=== PATIENT | male | born 1970 | race Caucasian/White ===

== ENCOUNTER → 2018-03-04 | Outpatient (CLI) | payer OTHER ==
[~2018-03-04] MED LIST: GADOBUTROL 7.5 MMOL/7.5 ML VIAL INT ART ONE; IOHEXOL 300 MG/ML 50 ML VIAL. INT ART ONE; LIDOCAINE 1% Multi-Dose 20 ML VIAL. ID ONE
--- NOTE | 2018-03-04 16:28 | KCIC ---
MR arthrogram of the right shoulder Indication: Pain. Technique: Intra-articular contrast injected into the glenohumeral joint and is reported separately. Routine 4 plane sequences were obtained, including ABER positioning. FINDINGS: Artifact: No significant image degradation. Acromioclavicular joint: Mildly degenerative with undersurface mass effect. Rotator cuff: * Supraspinatus-infraspinatus tendon: Intact * Subscapularis tendon: Intact * Muscle bulk: Within normal limits * Subacromial subdeltoid bursa:No significant fluid or contrast accumulation. Articular cartilage: Mild chondromalacia. Labrum: Tear of the superior, posterior, inferior and anterior labrum. Small anteroinferior para labral cyst measures 2 cm. Biceps tendon: Intact Bones: No lesion or acute fracture. Soft tissue: No acute findings. Impression: 1. Circumferential labral tear. Small anteroinferior para labral cyst. 2. No rotator cuff tear. 3. Primary osteoarthritis. Electronically signed by: Nomi Escobar MD (03/04/2018 4:25 PM) [id number]
--- NOTE | 2018-03-04 16:37 | KCIC ---
MR arthrogram of the left shoulder Indication: Left shoulder pain for 7 years. Technique: Intra-articular contrast injected into the glenohumeral joint and is reported separately. Routine 4 plane sequences were obtained, including ABER positioning. FINDINGS: Artifact: No significant image degradation Acromioclavicular joint: Degenerative with mild undersurface hypertrophy and mass effect Rotator cuff: * Supraspinatus-infraspinatus tendon: Intact * Subscapularis tendon: Intact * Muscle bulk: Within normal limits * Subacromial subdeltoid bursa: No significant fluid or contrast accumulation. Articular cartilage: Moderate chondromalacia Labrum: Tear of the superior labrum through posterior labrum. Tear of the anteroinferior labrum. Biceps tendon: Intact Bones: Small cyst at the humeral head. No aggressive bone destruction or acute fracture. Soft tissue: Small hypointense nodular structure within the biceps tendon sheath, below the bicipital groove. This could represent a small synovial nodule, versus a small loose body. Measures 2 mm. Impression: 1. Posterosuperior labral tear. 2. Anteroinferior labral tear. 3. Primary osteoarthritis. 4. Small nodular structure within the biceps tendon sheath, possible loose body. Electronically signed by: Nomi Escobar MD (03/04/2018 4:34 PM) [id number]
--- NOTE | 2018-03-04 16:53 | KCIC ---
PROCEDURE: Right shoulder injection using fluoroscopic guidance, prior to MR. HISTORY: Shoulder pain. Chronic pain. TECHNIQUE: The procedure was explained to the patient as were potential risks, including among others infection, bleeding or allergic reaction. All questions were answered. Informed written and verbal consent was obtained. The shoulder was prepped and draped in the usual sterile manner. Following administration of local anesthetic, a 22-gauge needle was advanced into the anterior shoulder. Following negative aspiration, 12 cc of a solution of 5cc Omnipaque-300 contrast, 5 cc 1% lidocaine, 10 cc normal saline, and 0.1 cc gadolinium was injected without difficulty. The needle was removed. There was good hemostasis at the injection site. The patient left in stable condition without immediate complication. A single spot image is obtained. FLUOROSCOPY TIME:?19 seconds Electronically signed by: Nomi Escobar MD (03/04/2018 4:50 PM) [id number]
--- NOTE | 2018-03-04 16:56 | KCIC ---
PROCEDURE: Left shoulder injection using fluoroscopic guidance, prior to MR. HISTORY: Shoulder pain. Pain is chronic. TECHNIQUE: The procedure was explained to the patient as were potential risks, including among others infection, bleeding or allergic reaction. All questions were answered. Informed written and verbal consent was obtained. The shoulder was prepped and draped in the usual sterile manner. Following administration of local anesthetic, a 22-gauge needle was advanced into the anterior shoulder. Following negative aspiration, 12 cc of a solution of 5cc Omnipaque-300 contrast, 5 cc 1% lidocaine, 10 cc normal saline, and 0.1 cc gadolinium was injected without difficulty. The needle was removed. There was good hemostasis at the injection site. The patient left in stable condition without immediate complication. A single spot image is obtained. FLUOROSCOPY TIME:?21 seconds Electronically signed by: Nomi Escobar MD (03/04/2018 4:52 PM) [id number]
== END | disposition home or self-care (01) ==
LOC: KCIC 12:28
DX: S43.492A Other sprain of left shoulder joint, initial encounter (principal); S43.491A Other sprain of right shoulder joint, initial encounter; M19.012 Primary osteoarthritis, left shoulder; M19.011 Primary osteoarthritis, right shoulder; M94.212 Chondromalacia, left shoulder; G89.29 Other chronic pain; X58.XXXA Exposure to other specified factors, initial encounter; Y93.89 Activity, other specified; Y92.89 Other specified places as the place of occurrence of the external cause; Y99.8 Other external cause status
CPT/HCPCS: 73040; 73222; A9585; Q9967

== ENCOUNTER 2021-03-17 06:32 | Day surgery (SDC) | payer OTHER ==
[~2021-03-17] VITALS: Ht 175.3 cm; Wt 118.0 kg
[~2021-03-17 06:32] MED LIST changes: +ACETAMINOPHEN 500 MG TABLET PO PRN; +CYAN-9 PO; +FLUO40CA9 PO; -GADOBUTROL 7.5 MMOL/7.5 ML VIAL INT ART ONE; +HYDROmorphone 2 MG/ML VIAL IVP PRN; -IOHEXOL 300 MG/ML 50 ML VIAL. INT ART ONE; +IV RINGERS,LACTATED 1000ML 1,000 ML IV SCH; -LIDOCAINE 1% Multi-Dose 20 ML VIAL. ID ONE; +MELO15TA6 PO; +MORPHINE SULFATE 2 MG/ML INJ. IVP PRN; +MULT-496 PO; +PREG150C PO; +PROCHLORPERAZINE 10 MG/2 ML VIAL. IVP PRN; +TAMS0.4C97 PO; +TEST200V3 IM; +fentaNYL PF VIAL 100 MCG/2 ML VIAL IVP PRN
[2021-03-17 06:51] VITALS: BP 143/80
[2021-03-17] MEDS ORDERED: BUPIVACAINE-EPI 0.25%-1:200000 MPF 30 ML VIAL. ONE (07:07)
[2021-03-17] MEDS ORDERED: SUCCINYLCHOLINE 200 MG/10 ML VIAL. ONE (07:17)
[2021-03-17] MEDS ORDERED: fentaNYL PF VIAL 250 MCG/5 ML VIAL ONE (07:18)
[2021-03-17] MEDS ORDERED: GLYCOPYRROLATE 1 MG/5 ML VIAL. ONE (07:18)
[2021-03-17] MEDS ORDERED: ROCURONIUM 50 MG/5 ML VIAL. ONE ×2 (07:19→08:14)
[2021-03-17] MEDS ORDERED: NEOSTIGMINE METHYLSULFATE 5 MG/5 ML SYRINGE. ONE (07:19)
[2021-03-17] MEDS ORDERED: MIDAZOLAM HCL/PF 2 MG/2 ML VIAL. ONE (07:19)
--- NOTE | 2021-03-17 07:45 | PDOC1 ---
History and Physical Date of Admission Date of Admission DATE: 03/17/21 TIME: 07:42 Identification/Chief Complaint Chief Complaint Abdominal pain Source Source: Patient History of Present Illness History of Present Illness 50-year-old male with complaints of abdominal pain at his umbilicus he previously had an umbilical hernia repair back in 2011 recently having more pain and a bulge again in this area Past Medical History Cardiovascular: No pertinent hx Pulmonary: No pertinent hx GI: No pertinent hx Heme/Onc: No pertinent hx Hepatobiliary: No pertinent hx Psych: Anxiety Rheumatologic: No pertinent hx Infectious disease: No pertinent hx ENT: No pertinent hx Renal/: No pertinent hx Endocrine: Diabetes Dermatology: No pertinent hx Past Surgical History Past Surgical History: Other (Umbilical hernia repair ankle fusion and excisions of multiple lipomas) Family History Family History: No Significant Social History Smoke: No ALCOHOL: none Drugs: None Current Medications Current Medications Current Medications Fentanyl Citrate (Fentanyl 2ml Vial) 25 mcg PRN Q5MIN PRN IVP MILD PAIN 1-3; Start 03/17/21 at 06:00; Stop 03/18/21 at 05:59 Fentanyl Citrate (Fentanyl 2ml Vial) 50 mcg PRN Q5MIN PRN IVP MODERATE PAIN 4- 6; Start 03/17/21 at 06:00; Stop 03/18/21 at 05:59 Morphine Sulfate (Morphine Sulfate) 1 mg PRN Q10MIN PRN IVP SEVERE PAIN 7-10; Start 03/17/21 at 06:00; Stop 03/18/21 at 05:59 Ringer's Solution 1,000 ml @ 30 mls/hr Q24H IV Last administered on 03/17/21at 07:09; Start 03/17/21 at 06:00; Stop 03/17/21 at 17:59 Hydromorphone HCl (Dilaudid) 0.5 mg PRN Q10MIN PRN IVP SEVERE PAIN 7-10, 2nd CHOICE; Start 03/17/21 at 06:00; Stop 03/18/21 at 05:59 Prochlorperazine Edisylate (Compazine) 5 mg PACU PRN PRN IVP NAUSEA, MRX1; Start 03/17/21 at 06:00; Stop 03/18/21 at 05:59 Acetaminophen (Tylenol) 1,000 mg 1X PREOP PRN PO PRIOR TO PROCEDURE Last administered on 03/17/21at 07:11; Start 03/17/21 at 06:00 Cefazolin Sodium/ Dextrose 50 ml @ 100 mls/hr 1X PREOP PRN IV PRIOR TO PROCEDURE; Start 03/17/21 at 06:00; Stop 03/17/21 at 18:00 Bupivacaine HCl/ Epinephrine Bitart (Sensorcaine-Epi 0.25%-1:627678 Mpf) 30 ml STK-MED ONCE .ROUTE ; Start 03/17/21 at 07:07; Stop 03/17/21 at 07:08; Status DC Succinylcholine Chloride (Anectine) 200 mg STK-MED ONCE .ROUTE ; Start 03/17/21 at 07:17; Stop 03/17/21 at 07:18; Status DC Glycopyrrolate (Robinul) 1 mg STK-MED ONCE .ROUTE ; Start 03/17/21 at 07:18; Stop 03/17/21 at 07:18; Status DC Fentanyl Citrate (Fentanyl 5ml Vial) 250 mcg STK-MED ONCE .ROUTE ; Start 03/17/21 at 07:18; Stop 03/17/21 at 07:19; Status DC Neostigmine [place] (Neostigmine Methylsulfate) 5 mg STK-MED ONCE .ROUTE ; Start 03/17/21 at 07:19; Stop 03/17/21 at 07:19; Status DC Rocuronium [place] (Zemuron) 50 mg STK-MED ONCE .ROUTE ; Start 03/17/21 at 07:19; Stop 03/17/21 at 07:20; Status DC Midazolam HCl (Versed) 2 mg STK-MED ONCE .ROUTE ; Start 03/17/21 at 07:19; Stop 03/17/21 at 07:20; Status DC Active Scripts Active Reported Vitamin B-12 (Cyanocobalamin (Vitamin B-12)) 1,000 Mcg Capsule 1,000 Mcg PO DAILY Daily Value (Multivitamin) 1 Each Tablet 1 Each PO DAILY Testosterone Cypionate 200 Mg/1 Ml Vial 200 Mg IM Q2WKS Flomax (Tamsulosin Hcl) 0.4 Mg Cap.er.24h 0.4 Mg PO DAILY Mobic (Meloxicam) 15 Mg Tablet 15 Mg PO DAILY Lyrica (Pregabalin) 150 Mg Capsule 150 Mg PO DAILY 30 Days Prozac (Fluoxetine Hcl) 40 Mg Capsule 60 Mg PO DAILY Allergies Allergies: Coded Allergies: No Known Drug Allergies (Unverified , 03/17/21) ROS Gastrointestinal: Yes Abdominal Pain Physical Exam General: Alert, Oriented X3, Cooperative, No acute distress HEENT: Atraumatic, EOMI Lungs: Clear to auscultation, Normal air movement Heart: RRR, no murmurs Abdomen: Normal bowel sounds, Soft, Other (Tender to palpation at the umbilicus with reducible bulge at the umbilicus) Rectal Exam: not examined Extremities: No edema Skin: No significant lesion Neuro: Normal speech Vitals Vitals Vital Signs Date Time Temp Pulse Resp B/P (MAP) Pulse Ox O2 Delivery O2 Flow Rate FiO2 03/17/21 06:55 97.4 95 18 143/80 97 Room Air 97.4 VTE Prophylaxis Ordered VTE Prophylaxis Devices: Yes VTE Pharmacological Prophylaxi: Contraindicated Assessment/Plan Assessment/Plan Recurrent incisional ventral hernia plan robotic repair with mesh Justifications for Admission Other Justification CRISTIAN YOUNG MD Mar 17, 2021 07:45
[2021-03-17] MEDS ORDERED: PROPOFOL 10 MG/ML (20ML) VIAL. IV ONE (08:36)
[2021-03-17] MEDS ORDERED: LIDOCAINE 2% PF 5 ML VIAL. ONE (08:36)
[2021-03-17] MEDS ORDERED: DEXAMETHASONE SOD PHOS 4 MG/ML VIAL ONE (08:37)
[2021-03-17] MEDS ORDERED: ONDANSETRON PF 4 MG/2 ML VIAL. ONE (08:37)
--- NOTE | 2021-03-17 08:37 | PDOC4 ---
Operative Note Operative Note Date: March 172020 at 834 Preoperative diagnosis: Abdominal pain possible incisional hernia Postoperative diagnosis: Adhesions to previous hernia repair Procedure: Robotic assisted laparoscopic lysis of adhesions Surgeon: Campos Specimen: None Dictation: Patient is a 50-year-old male who is having abdominal pain at a previous incision site for an umbilical hernia repair. He is concerned for recurrence of his hernia and he does have a bulge at his umbilicus. The procedure of robotic assisted laparoscopic ventral hernia repair with mesh was explained to the patient detail risk benefits were also discussed including bleeding infection injury to intra-abdominal contents possible necessitating further open operations alternatives to this procedure also discussed with the patient who seemed to understand and gave both verbal and written consent to have the procedure performed. Patient was taken to the operating room placed in supine position general anesthesia was initiated once patient was sleeping intubated his abdomen was prepped and draped usual sterile fashion using ChloraPrep. An area in the left upper quadrant was injected with quarter percent Marcaine with epinephrine incision was made 11 blade scalpel and 5 mm Visiport was placed under direct visualization the abdomen creating pneumoperitoneum once this was complete 8 mm ventral port was placed in the left midabdomen a millimeter da Damion port was placed in the left lower abdomen and the 5 mm Visiport was changed out an 8 mm da [place]ion port was noted that there were quite a few adhesions to the abdominal wall the da [place] robot was brought and docked all port sites surgeon went to the robotic console using a grasper and Endo Jesse scissors the adhesions to the anterior abdominal wall were all taken down with blunt and sharp dissection once these adhesions were all taken down was noted there is a fairly large piece of mesh covering the center portion of his abdomen with no evidence of a hernia recurrence. Photos were taken of the mesh the da [place]ion robot was undocked from all port sites all ports were removed all port sites were closed for subcuticular Monocryl Mastisol Steri- Strips and island dressings were applied. Patient was awakened and extubated in the operating room taken to recovery in stable condition all sponge instrument needle counts listed as correct estimated blood loss 5 mL. CRISTIAN YOUNG MD Mar 17, 2021 08:37
[2021-03-17] MEDS ORDERED: OXYC-325 PO (08:39)
--- NOTE | 2021-03-17 08:40 | DISCH ---
DISCHARGE INSTRUCTIONS Condition on Discharge Condition on Discharge: Stable Activity After Discharge Activity Instructions for Disc: Avoid exertion Other activity instructions: No lifting more than 20 pounds for 2 weeks Diet after Discharge Diet after Discharge: Regular Wound Incision Care Other wound/incision instructi: Glory shower in 24 hours Contacting the after DC Call your doctor for: If your condition worsens Follow-Up Follow up with: Dr. Young in 2 weeks CRISTIAN YOUNG MD Mar 17, 2021 08:40
[2021-03-17] MEDS ORDERED: MORPHINE SULFATE 2 MG/ML INJ. ONE (08:56)
[2021-03-17] MEDS ORDERED: oxyCODONE/APAP 5/325 1 TAB TABLET PO ONE (09:15)
[2021-03-17] MEDS ORDERED: PHENYLEPHRINE in 0.9% NACL PF 1 MG/10 ML SYRINGE. IV ONE (09:56)
[2021-03-17 10:10] VITALS: BP 121/67
== END 2021-03-17 10:21 | disposition home or self-care (01) ==
LOC: SURG 06:32
PROVIDERS: ATTEND Surgery
DX: K66.0 Peritoneal adhesions (postprocedural) (postinfection) (principal); F41.9 Anxiety disorder, unspecified; G47.33 Obstructive sleep apnea (adult) (pediatric); M19.90 Unspecified osteoarthritis, unspecified site; Z79.899 Other long term (current) drug therapy; Z98.890 Other specified postprocedural states
CPT/HCPCS: 49329; A4364; A4930; A6219; J0330; J0690; J1100; J2250; J2270; J2370; J2405; J2704; J2710; J3010; J3490; A4657